=== PATIENT | female | born 1980 | race Caucasian/White ===

== ENCOUNTER 2023-07-22 10:08 | Outpatient (CLI) | payer OTHER, SELFPAY ==
[2023-07-22 11:10] LABS: Erythrocyte SedimentationRate* < 2 mm/hr (2-20)
== END 2023-07-22 10:09 | disposition home or self-care (01) ==
LOC: LAB 10:12
PROVIDERS: PCP Family Medicine; Visit Provider Psychiatry & Neurology Neurology
DX: R51.9 Headache, unspecified (principal)
CPT/HCPCS: 36415; 85651

== ENCOUNTER 2023-07-24 09:57 | Outpatient (CLI) | payer OTHER, SELFPAY ==
--- NOTE | 2023-07-24 10:15 | MR_ITS ---
Patient: JONNA TAYLOR Facility:?[facility]IS Patient ID:?[id number] Site Patient ID:?[id number]. Site :?[id number] Study:?MRI-Head W/ and W/O Cont 14cc dotarem-07/24/2023 11:55:13 AM Ordering Physician:?Heri Corley Final Report: Indication: Headaches. Technique: Noncontrast sagittal T1, axial FLAIR, T2, diffusion, post contrast T1 weighted sequences are provided. No comparisons. 14 cc of dotarem gadolinium was administered intravenously. Findings: The ventricles, sulci and gyri are normal size, shape and contour for age. The midline structures are centrally located with no evidence of shift. There are no suspicious intra or extra-axial fluid collections. No region of restricted diffusion or suspicious regions of abnormal parenchymal enhancement. Expected flow voids in the cavernous carotids and basilar artery. Impression: 1. No radiographic evidence of acute intracranial abnormalities. Dictated by Jer Griffith MD @ 07/25/2023 4:16:38 AM Signed by:?Jer Griffith MD @07/25/2023 4:16:38 AM (Electronic Signature)
== END 2023-07-24 09:58 | disposition home or self-care (01) ==
PROVIDERS: PCP Family Medicine; Visit Provider Psychiatry & Neurology Neurology
DX: R51.9 Headache, unspecified (principal)
CPT/HCPCS: 70553; A9575